=== PATIENT | male | born 1950 | race Caucasian/White ===

== ENCOUNTER 2017-04-08 11:08 | Outpatient (CLI) | payer OTHER | END 2017-04-08 11:10 | LOC: LAB 11:08 | PROVIDERS: ATTEND Internal Medicine | DX: Z79.01 Long term (current) use of anticoagulants (principal); Z96.649 Presence of unspecified artificial hip joint; Z96.659 Presence of unspecified artificial knee joint | CPT/HCPCS: 36415; 85610 ==

== ENCOUNTER 2017-04-11 12:15 | Outpatient (CLI) | payer OTHER | END 2017-04-11 13:28 | LOC: LAB 12:15 | PROVIDERS: ATTEND Orthopaedic Surgery | DX: Z79.01 Long term (current) use of anticoagulants (principal); Z96.643 Presence of artificial hip joint, bilateral; Z96.653 Presence of artificial knee joint, bilateral | CPT/HCPCS: 36415; 85610 ==

== ENCOUNTER 2017-04-15 11:58 | Outpatient (CLI) | payer OTHER | END 2017-04-15 12:00 | LOC: LAB 11:58 | PROVIDERS: ATTEND Orthopaedic Surgery | DX: Z79.01 Long term (current) use of anticoagulants (principal) | CPT/HCPCS: 36415; 85610 ==

== ENCOUNTER 2017-04-17 11:20 | Outpatient (CLI) | payer OTHER | END 2017-04-17 11:21 | LOC: LAB 11:20 | PROVIDERS: ATTEND Orthopaedic Surgery | DX: Z51.81 Encounter for therapeutic drug level monitoring (principal); Z96.643 Presence of artificial hip joint, bilateral; Z96.653 Presence of artificial knee joint, bilateral | CPT/HCPCS: 36415; 85610 ==

== ENCOUNTER 2017-04-22 12:04 | Outpatient (CLI) | payer OTHER | END 2017-04-22 12:05 | LOC: LAB 12:04 | PROVIDERS: ATTEND Orthopaedic Surgery | DX: Z51.81 Encounter for therapeutic drug level monitoring (principal); Z96.643 Presence of artificial hip joint, bilateral; Z96.653 Presence of artificial knee joint, bilateral | CPT/HCPCS: 36415; 85610 ==

== ENCOUNTER 2017-04-25 09:05 | Outpatient (CLI) | payer OTHER | END 2017-04-25 09:06 | LOC: LAB 09:05 | PROVIDERS: ATTEND Orthopaedic Surgery | DX: Z79.01 Long term (current) use of anticoagulants (principal); Z96.643 Presence of artificial hip joint, bilateral; Z96.653 Presence of artificial knee joint, bilateral | CPT/HCPCS: 36415; 85610 ==